=== PATIENT | female | born 1950 | race Caucasian/White ===

== ENCOUNTER 2021-01-26 08:06 | Day surgery (SDC) | payer OTHER, SELFPAY ==
[~2021-01-26] VITALS: Ht 160 cm; Wt 70.3 kg
[2021-01-26] MEDS ORDERED: LR 500 ML IV.SOLN IV ONE (08:07)
[2021-01-26] MEDS ORDERED: PROPOFOL 200MG/ 20ML VIAL (DIPRIVAN) IV ONE ×2 (08:07)
[2021-01-26] MEDS ORDERED: MIDAZOLAM HCL 5 MG/5 ML VIAL IVP ONE (08:07)
[2021-01-26] MEDS ORDERED: fentaNYL CITRATE/PF 100 MCG/2 ML AMP IVP PRN ×2 (10:15)
[2021-01-26] MEDS ORDERED: ONDANSETRON HCL 4 MG/2 ML VIAL IVP PRN (10:15)
[2021-01-26 16:35] VITALS: BP_SYST 109
== END 2021-01-26 11:30 | disposition home or self-care (01) ==
LOC: SMU 08:06 → SDS 08:06
PROVIDERS: ATTEND Internal Medicine Gastroenterology
DX: R19.5 Other fecal abnormalities (principal); K29.50 Unspecified chronic gastritis without bleeding; K21.00 Gastro-esophageal reflux disease with esophagitis, without bleeding; K57.30 Diverticulosis of large intestine without perforation or abscess without bleeding; K85.90 Acute pancreatitis without necrosis or infection, unspecified; K64.8 Other hemorrhoids; E11.9 Type 2 diabetes mellitus without complications; Z20.822 Contact with and (suspected) exposure to COVID-19; Z90.49 Acquired absence of other specified parts of digestive tract; Z79.899 Other long term (current) drug therapy
CPT/HCPCS: 36415; 43239; 45378; 82962; 87081; 88305; 88312; 88313; G0378; J2250; J2704; U0003; J7120